=== PATIENT | male | born 1930 | race Caucasian/White ===

== ENCOUNTER → 2018-05-03 | Outpatient (CLI) | payer MEDICARE ==
[~2018-05-03] MED LIST: ACCUNEB 0.0.63 MG/3 INH; ACETYLCYSTEINE; ALEVE220 MG PO; AMOXIL500 MG PO; ASPIR 8181 MG PO; ATIVAN PO; AUGMENTIN 875 M1 TAB PO; BACLOFEN10 MG PO; BACTROBAN21 NS; CELEXA10 MG PO; CELEXA20 MG PO; CLARITIN10 MG PO; CLINDAMYCIN HC300 MG PO; FLEXERIL10 MG PO; HEPARIN5000 UNIT/ SC; LEVOFLOXACIN500 MG PO; LEVOTHYROXINE0.05 MG PO; LEVOTHYROXINE0.1 MG PO; LISINOPRIL10 MG PO; LISINOPRIL5 MG PO; LOPRESSOR25 MG; LOVENOX40 MG/0.4 SC; MUCINEX600 MG PO; NORCO 325 MG-51 TAB PO; OXYCODONE HCL5 MG PO; PHENERGAN W/DM120 ML PO; PRILOSEC20 MG PO; PRILOSEC40 MG PO; ROBITUSSIN5 ML PO; SIMVASTATIN10 MG PO; SYNTHROID,LEV100 MCG PO; TYLENOL500 MG PO; VICODIN 5/500 505 MG PO; VITAMIN D31000 I1 PO; ZITHROMAX Z PA250 MG PO; ZOCOR40 MG PO
== END | disposition home or self-care (01) ==
LOC: CT 09:00
DX: N40.1 Benign prostatic hyperplasia with lower urinary tract symptoms (principal); R14.0 Abdominal distension (gaseous)